=== PATIENT | female | born 1940 | race Caucasian/White ===

== ENCOUNTER 2023-04-19 15:03 | Inpatient (IN) | payer MEDICARE, BC ==
[2023-04-19] MEDS ORDERED: Acetaminophen/HYDROcodone 325-10 MG Tab PO ONE (15:29)
[2023-04-19] MEDS ORDERED: Acetaminophen 325 MG Tab PO PRN (18:09)
[2023-04-19] MEDS ORDERED: Polyethylene Glycol 3350 Powder 17 GM Packet PO PRN (18:10)
[2023-04-19] MEDS ORDERED: Non-Formulary Medication 1 Each (Triamcinolone Acetonide 80 GM Tube) TOP SCH (18:15)
[2023-04-19] MEDS: Amitriptyline 25 MG Tab PO SCH (21:58)
[2023-04-19] MEDS: Acetaminophen 650 MG Tab.ER PO PRN (21:58)
[2023-04-19] MEDS: atorvaSTATin 40 MG Tab PO SCH (21:58)
[2023-04-20] MEDS: Acetaminophen/HYDROcodone 325-5 MG Tab PO PRN ×5 (01:29→23:58)
[2023-04-20] MEDS: Levothyroxine 112 MCG Tab PO SCH (06:48)
[2023-04-20 08:12] LABS: BASOPHILS ABSOLUTE AUTO 0.1 x10^3/uL (0.0-0.2); BASOPHILS PERCENT AUTO 1.2 % (0.2-1.2); EOSINOPHILS ABSOLUTE AUTO 0.3 x10^3/uL (0.0-0.5); EOSINOPHILS PERCENT AUTO 5.4 % (0.0-4.0); HEMATOCRIT 35.8 % (33.0-47.0); HEMOGLOBIN 11.4 g/dL (12.0-16.0); IMMATURE GRAN ABSOLUTE AUTO 0.01 x10^3/uL (0.00-0.07); LYMPHOCYTES ABSOLUTE AUTO 1.8 x10^3/uL (1.0-4.8); LYMPHOCYTES PERCENT AUTO 35.2 % (25.0-50.0); MEAN CORPUSCULAR HEMOGLOBIN 27.9 pg (26.0-32.0); MEAN CORPUSCULAR HGB CONC 31.8 g/dL (32.0-36.0); MEAN CORPUSCULAR VOLUME 87.7 fL (78.0-93.0); MONOCYTES ABSOLUTE AUTO 0.4 x10^3/uL (0.0-0.8); MONOCYTES PERCENT AUTO 7.9 % (2.0-11.0); NEUTROPHILS ABSOLUTE AUTO 2.6 x10^3/uL (1.8-7.7); NEUTROPHILS PERCENT AUTO 50.1 % (50.0-80.0); PLATELET COUNT,PLT 163 x10^3/uL (130-400); RED BLOOD CELL COUNT 4.08 x10^6/uL (4.00-5.50); WHITE BLOOD CELL COUNT,WBC 5.2 x10^3/uL (4.0-10.0)
[2023-04-20 08:28] LABS: A/G RATIO 0.97; BILIRUBIN TOTAL 0.5 mg/dL (0.2-1.0); CALCIUM 8.5 mg/dL (8.5-10.1); CREATININE 0.8 mg/dL (0.55-1.02); EST CRCL DRUG DOSING (CG) 40.21 mL/min; MAGNESIUM 1.7 mg/dL (1.8-2.4); POTASSIUM,K 3.5 mmol/L (3.5-5.1); PROTEIN TOTAL,TP 6.1 g/dL (6.4-8.2)
[2023-04-20 08:31] LABS: ANION GAP 8.5 mmol/L (5-15)
[2023-04-20] MEDS: Metoprolol Tartrate 50 MG Tab PO SCH (08:31)
[2023-04-20] MEDS: Multivitamin Tab PO SCH (08:32)
[2023-04-20] MEDS: Docusate Sodium 100 MG Cap PO SCH (08:34)
[2023-04-20] MEDS ORDERED: Magnesium Oxide 400 MG Tab PO ONE (10:22)
[2023-04-20] MEDS: atorvaSTATin 40 MG Tab PO SCH (21:19)
[2023-04-20] MEDS: Amitriptyline 25 MG Tab PO SCH (21:19)
[2023-04-20] MEDS: Acetaminophen 650 MG Tab.ER PO PRN (21:20)
[2023-04-21] MEDS: Levothyroxine 112 MCG Tab PO SCH (06:20)
[2023-04-21] MEDS: Acetaminophen/HYDROcodone 325-5 MG Tab PO PRN ×2 (07:52→21:32)
[2023-04-21] MEDS: Multivitamin Tab PO SCH ×2 (07:53→09:00)
[2023-04-21] MEDS: Docusate Sodium 100 MG Cap PO SCH ×2 (07:53→09:00)
[2023-04-21] MEDS: Metoprolol Tartrate 50 MG Tab PO SCH ×2 (07:53→09:00)
[2023-04-21] MEDS: Albuterol/Ipratropium 3.0-0.5 MG/3 ML Neb Soln NEB PRN (09:15)
[2023-04-21] MEDS: HYDROmorphone 0.5 MG/0.5 ML Syringe IVPUSH PRN (12:32)
[2023-04-21] MEDS: Amitriptyline 25 MG Tab PO SCH (21:29)
[2023-04-21] MEDS: atorvaSTATin 40 MG Tab PO SCH (21:29)
[2023-04-22] MEDS: Levothyroxine 112 MCG Tab PO SCH (06:37)
[2023-04-22] MEDS: Acetaminophen/HYDROcodone 325-5 MG Tab PO PRN ×2 (06:47→20:59)
[2023-04-22] MEDS: Albuterol/Ipratropium 3.0-0.5 MG/3 ML Neb Soln NEB PRN ×2 (09:03→20:59)
[2023-04-22] MEDS: HYDROmorphone 0.5 MG/0.5 ML Syringe IVPUSH PRN (09:10)
[2023-04-22] MEDS: Docusate Sodium 100 MG Cap PO SCH (09:11)
[2023-04-22] MEDS: Multivitamin Tab PO SCH (09:11)
[2023-04-22] MEDS: Metoprolol Tartrate 50 MG Tab PO SCH (09:11)
[2023-04-22] MEDS: Amitriptyline 25 MG Tab PO SCH (20:59)
[2023-04-22] MEDS: atorvaSTATin 40 MG Tab PO SCH (20:59)
[2023-04-23] MEDS: Metoprolol Tartrate 50 MG Tab PO SCH ×2 (06:36→08:23)
[2023-04-23] MEDS: Docusate Sodium 100 MG Cap PO SCH ×2 (06:36→08:22)
[2023-04-23] MEDS: Multivitamin Tab PO SCH ×2 (06:36→08:23)
[2023-04-23] MEDS: Levothyroxine 112 MCG Tab PO SCH (06:37)
[2023-04-23] MEDS: Acetaminophen/HYDROcodone 325-5 MG Tab PO PRN (11:44)
[2023-04-24] MEDS ORDERED: predniSONE 20 MG Tab PO SCH (09:00)
== END 2023-04-23 16:00 | disposition swing bed (61) | DRG 552 ==
LOC: VM.ED 15:03 → VM.MS 17:50 → OBSVTOIN 04-20 10:42
PROVIDERS: ADMIT Nurse Practitioner Family; ATTEND Family Medicine
DX: S32.020A Wedge compression fracture of second lumbar vertebra, initial encounter for closed fracture (principal); J45.21 Mild intermittent asthma with (acute) exacerbation; J45.909 Unspecified asthma, uncomplicated; I25.10 Atherosclerotic heart disease of native coronary artery without angina pectoris; M19.90 Unspecified osteoarthritis, unspecified site; M17.10 Unilateral primary osteoarthritis, unspecified knee; E03.9 Hypothyroidism, unspecified; F32.A Depression, unspecified; M06.9 Rheumatoid arthritis, unspecified; I10 Essential (primary) hypertension; E78.2 Mixed hyperlipidemia; E66.9 Obesity, unspecified; F41.9 Anxiety disorder, unspecified; M43.16 Spondylolisthesis, lumbar region; E78.00 Pure hypercholesterolemia, unspecified; Z88.2 Allergy status to sulfonamides; Z88.8 Allergy status to other drugs, medicaments and biological substances; Z88.5 Allergy status to narcotic agent; Z91.013 Allergy to seafood; Z91.040 Latex allergy status; Z91.018 Allergy to other foods; Z79.899 Other long term (current) drug therapy; Z95.0 Presence of cardiac pacemaker; I25.2 Old myocardial infarction; Z86.73 Personal history of transient ischemic attack (TIA), and cerebral infarction without residual deficits; Z87.440 Personal history of urinary (tract) infections; Z98.49 Cataract extraction status, unspecified eye; Z90.49 Acquired absence of other specified parts of digestive tract; Z98.890 Other specified postprocedural states; Z90.710 Acquired absence of both cervix and uterus; Z68.34 Body mass index [BMI] 34.0-34.9, adult; Z87.891 Personal history of nicotine dependence; W10.9XXA Fall (on) (from) unspecified stairs and steps, initial encounter
CPT/HCPCS: 36415; 72131; 72192; 80053; 82550; 83735; 85025; 94640; 97116-GP; 97162-GP; 97165-GO; 97530-GP; 97535-GO; 99285; A9270-GY; G0378; J1170; J7620-GY

== ENCOUNTER 2023-04-23 13:10 | Inpatient (IN) | payer MEDICARE, BC ==
[2023-04-23] MEDS ORDERED: Albuterol/Ipratropium 3.0-0.5 MG/3 ML Neb Soln NEB PRN (15:49)
[2023-04-23] MEDS ORDERED: Polyethylene Glycol 3350 Powder 17 GM Packet PO PRN (15:49)
[2023-04-23] MEDS: atorvaSTATin 40 MG Tab PO SCH (20:43)
[2023-04-23] MEDS: Amitriptyline 25 MG Tab PO SCH (20:43)
[2023-04-23] MEDS: Acetaminophen 650 MG Tab.ER PO PRN (20:43)
[2023-04-24] MEDS: Levothyroxine 112 MCG Tab PO SCH (07:33)
[2023-04-24] MEDS: Metoprolol Tartrate 50 MG Tab PO SCH (08:22)
[2023-04-24] MEDS: Docusate Sodium 100 MG Cap PO SCH (08:23)
[2023-04-24] MEDS: Multivitamin Tab PO SCH (08:23)
[2023-04-24] MEDS: predniSONE 20 MG Tab PO SCH (08:23)
[2023-04-24] MEDS: Acetaminophen 650 MG Tab.ER PO PRN (08:26)
[2023-04-24] MEDS: Amitriptyline 25 MG Tab PO SCH (20:29)
[2023-04-24] MEDS: Acetaminophen/HYDROcodone 325-5 MG Tab PO PRN (20:29)
[2023-04-24] MEDS: atorvaSTATin 40 MG Tab PO SCH (20:30)
[2023-04-25] MEDS: Acetaminophen/HYDROcodone 325-5 MG Tab PO PRN ×2 (00:01→20:59)
[2023-04-25] MEDS: Levothyroxine 112 MCG Tab PO SCH (07:32)
[2023-04-25] MEDS: Docusate Sodium 100 MG Cap PO SCH (08:39)
[2023-04-25] MEDS: Multivitamin Tab PO SCH (08:40)
[2023-04-25] MEDS: predniSONE 20 MG Tab PO SCH (08:40)
[2023-04-25] MEDS: Metoprolol Tartrate 50 MG Tab PO SCH (08:41)
[2023-04-25] MEDS: Acetaminophen 650 MG Tab.ER PO PRN (16:40)
[2023-04-25] MEDS: Amitriptyline 25 MG Tab PO SCH (20:59)
[2023-04-25] MEDS: atorvaSTATin 40 MG Tab PO SCH (20:59)
[2023-04-26] MEDS: Levothyroxine 112 MCG Tab PO SCH (06:34)
[2023-04-26] MEDS: Docusate Sodium 100 MG Cap PO SCH (09:07)
[2023-04-26] MEDS: Acetaminophen 650 MG Tab.ER PO PRN ×2 (09:07→20:54)
[2023-04-26] MEDS: predniSONE 20 MG Tab PO SCH (09:07)
[2023-04-26] MEDS: Multivitamin Tab PO SCH (09:07)
[2023-04-26] MEDS: Metoprolol Tartrate 50 MG Tab PO SCH (09:09)
[2023-04-26] MEDS: atorvaSTATin 40 MG Tab PO SCH (20:51)
[2023-04-26] MEDS: Amitriptyline 25 MG Tab PO SCH (20:51)
[2023-04-27] MEDS: Levothyroxine 112 MCG Tab PO SCH (06:31)
[2023-04-27] MEDS: Metoprolol Tartrate 50 MG Tab PO SCH (10:01)
[2023-04-27] MEDS: Acetaminophen 650 MG Tab.ER PO PRN (10:01)
[2023-04-27] MEDS: Docusate Sodium 100 MG Cap PO SCH (10:02)
[2023-04-27] MEDS: Multivitamin Tab PO SCH (10:02)
[2023-04-27] MEDS: predniSONE 20 MG Tab PO SCH (10:02)
[2023-04-27] MEDS: Amitriptyline 25 MG Tab PO SCH (20:12)
[2023-04-27] MEDS: Acetaminophen/HYDROcodone 325-5 MG Tab PO PRN (20:13)
[2023-04-27] MEDS: atorvaSTATin 40 MG Tab PO SCH (20:14)
[2023-04-28] MEDS: Levothyroxine 112 MCG Tab PO SCH (06:10)
[2023-04-28] MEDS: Acetaminophen 650 MG Tab.ER PO PRN (06:14)
[2023-04-28] MEDS: Multivitamin Tab PO SCH (09:41)
[2023-04-28] MEDS: Metoprolol Tartrate 50 MG Tab PO SCH (09:42)
[2023-04-28] MEDS: Docusate Sodium 100 MG Cap PO SCH (09:42)
[2023-04-28] MEDS: predniSONE 20 MG Tab PO SCH (09:43)
[2023-04-28] MEDS: Acetaminophen/HYDROcodone 325-5 MG Tab PO PRN ×2 (16:24→20:29)
[2023-04-28] MEDS: atorvaSTATin 40 MG Tab PO SCH (20:28)
[2023-04-28] MEDS: Amitriptyline 25 MG Tab PO SCH (20:29)
[2023-04-29] MEDS: Levothyroxine 112 MCG Tab PO SCH (06:52)
[2023-04-29] MEDS: Acetaminophen 650 MG Tab.ER PO PRN (06:53)
[2023-04-29] MEDS: Docusate Sodium 100 MG Cap PO SCH (10:05)
[2023-04-29] MEDS: Metoprolol Tartrate 50 MG Tab PO SCH (10:06)
[2023-04-29] MEDS: Multivitamin Tab PO SCH (10:09)
[2023-04-29] MEDS: Acetaminophen/HYDROcodone 325-5 MG Tab PO PRN (20:41)
[2023-04-29] MEDS: atorvaSTATin 40 MG Tab PO SCH (20:41)
[2023-04-29] MEDS: Amitriptyline 25 MG Tab PO SCH (20:41)
[2023-04-30] MEDS: Levothyroxine 112 MCG Tab PO SCH (07:22)
[2023-04-30] MEDS: Acetaminophen/HYDROcodone 325-5 MG Tab PO PRN ×2 (07:23→20:33)
[2023-04-30] MEDS: Docusate Sodium 100 MG Cap PO SCH (08:09)
[2023-04-30] MEDS: Multivitamin Tab PO SCH (08:09)
[2023-04-30] MEDS: Metoprolol Tartrate 50 MG Tab PO SCH (08:09)
[2023-04-30] MEDS: Acetaminophen 650 MG Tab.ER PO PRN (14:48)
[2023-04-30] MEDS: Amitriptyline 25 MG Tab PO SCH (20:32)
[2023-04-30] MEDS: atorvaSTATin 40 MG Tab PO SCH (20:33)
[2023-05-01] MEDS: Levothyroxine 112 MCG Tab PO SCH (06:00)
[2023-05-01] MEDS: Acetaminophen 650 MG Tab.ER PO PRN ×2 (06:00→20:36)
[2023-05-01] MEDS: Metoprolol Tartrate 50 MG Tab PO SCH (09:37)
[2023-05-01] MEDS: Multivitamin Tab PO SCH (09:37)
[2023-05-01] MEDS: Docusate Sodium 100 MG Cap PO SCH (09:38)
[2023-05-01] MEDS: Amitriptyline 25 MG Tab PO SCH (20:35)
[2023-05-01] MEDS: Acetaminophen/HYDROcodone 325-5 MG Tab PO PRN (20:36)
[2023-05-01] MEDS: atorvaSTATin 40 MG Tab PO SCH (20:36)
[2023-05-02] MEDS: Levothyroxine 112 MCG Tab PO SCH (06:53)
[2023-05-02] MEDS: Acetaminophen 650 MG Tab.ER PO PRN ×2 (08:52→21:40)
[2023-05-02] MEDS: Docusate Sodium 100 MG Cap PO SCH (08:53)
[2023-05-02] MEDS: Multivitamin Tab PO SCH (08:54)
[2023-05-02] MEDS: Metoprolol Tartrate 50 MG Tab PO SCH (08:54)
[2023-05-02] MEDS: Amitriptyline 25 MG Tab PO SCH (21:39)
[2023-05-02] MEDS: atorvaSTATin 40 MG Tab PO SCH (21:40)
[2023-05-02] MEDS: Acetaminophen/HYDROcodone 325-5 MG Tab PO PRN (21:40)
[2023-05-03] MEDS: Acetaminophen 650 MG Tab.ER PO PRN ×2 (05:50→20:22)
[2023-05-03] MEDS: Levothyroxine 112 MCG Tab PO SCH ×2 (05:50→07:22)
[2023-05-03] MEDS: Metoprolol Tartrate 50 MG Tab PO SCH ×2 (05:51→08:39)
[2023-05-03] MEDS: Multivitamin Tab PO SCH ×2 (05:51→08:39)
[2023-05-03] MEDS: Docusate Sodium 100 MG Cap PO SCH ×2 (05:51→08:39)
[2023-05-03] MEDS: Amitriptyline 25 MG Tab PO SCH (20:22)
[2023-05-03] MEDS: Acetaminophen/HYDROcodone 325-5 MG Tab PO PRN (20:22)
[2023-05-03] MEDS: atorvaSTATin 40 MG Tab PO SCH (20:22)
[2023-05-04] MEDS: Levothyroxine 112 MCG Tab PO SCH (06:21)
[2023-05-04] MEDS: Acetaminophen 650 MG Tab.ER PO PRN ×2 (06:22→21:30)
[2023-05-04] MEDS: Docusate Sodium 100 MG Cap PO SCH (08:14)
[2023-05-04] MEDS: Metoprolol Tartrate 50 MG Tab PO SCH (08:14)
[2023-05-04] MEDS: Multivitamin Tab PO SCH (08:15)
[2023-05-04] MEDS: Amitriptyline 25 MG Tab PO SCH (21:29)
[2023-05-04] MEDS: Acetaminophen/HYDROcodone 325-5 MG Tab PO PRN (21:30)
[2023-05-04] MEDS: atorvaSTATin 40 MG Tab PO SCH (21:30)
[2023-05-05] MEDS: Levothyroxine 112 MCG Tab PO SCH (07:22)
[2023-05-05] MEDS: Acetaminophen 650 MG Tab.ER PO PRN ×2 (09:16→23:06)
[2023-05-05] MEDS: Multivitamin Tab PO SCH (09:20)
[2023-05-05] MEDS: Docusate Sodium 100 MG Cap PO SCH (09:20)
[2023-05-05] MEDS: Metoprolol Tartrate 50 MG Tab PO SCH (09:21)
[2023-05-05] MEDS: Amitriptyline 25 MG Tab PO SCH (22:00)
[2023-05-05] MEDS: atorvaSTATin 40 MG Tab PO SCH (22:00)
[2023-05-06] MEDS: Levothyroxine 112 MCG Tab PO SCH (06:16)
[2023-05-06] MEDS: Metoprolol Tartrate 50 MG Tab PO SCH (08:41)
[2023-05-06] MEDS: Multivitamin Tab PO SCH (08:42)
[2023-05-06] MEDS: Docusate Sodium 100 MG Cap PO SCH (08:42)
[2023-05-06] MEDS: atorvaSTATin 40 MG Tab PO SCH (20:55)
[2023-05-06] MEDS: Acetaminophen 650 MG Tab.ER PO PRN (20:55)
[2023-05-06] MEDS: Amitriptyline 25 MG Tab PO SCH (20:55)
[2023-05-07] MEDS: Levothyroxine 112 MCG Tab PO SCH (06:21)
[2023-05-07] MEDS: Acetaminophen 650 MG Tab.ER PO PRN (06:26)
[2023-05-07] MEDS: Metoprolol Tartrate 50 MG Tab PO SCH (08:46)
[2023-05-07] MEDS: Multivitamin Tab PO SCH (08:46)
[2023-05-07] MEDS: Docusate Sodium 100 MG Cap PO SCH (08:48)
== END 2023-05-07 11:15 | disposition home health service (06) | DRG 561 ==
LOC: VM.MS 16:00
PROVIDERS: ADMIT Internal Medicine; ATTEND Family Medicine
DX: S32.029D Unspecified fracture of second lumbar vertebra, subsequent encounter for fracture with routine healing (principal); I10 Essential (primary) hypertension; E03.9 Hypothyroidism, unspecified; E66.9 Obesity, unspecified; I49.5 Sick sinus syndrome; F32.A Depression, unspecified; F41.9 Anxiety disorder, unspecified; M06.9 Rheumatoid arthritis, unspecified; E78.00 Pure hypercholesterolemia, unspecified; I25.10 Atherosclerotic heart disease of native coronary artery without angina pectoris; Z86.73 Personal history of transient ischemic attack (TIA), and cerebral infarction without residual deficits; Z79.899 Other long term (current) drug therapy; Z79.890 Hormone replacement therapy; I25.2 Old myocardial infarction; Z95.0 Presence of cardiac pacemaker; Z98.49 Cataract extraction status, unspecified eye; Z90.49 Acquired absence of other specified parts of digestive tract; Z90.710 Acquired absence of both cervix and uterus; Z98.890 Other specified postprocedural states; Z87.891 Personal history of nicotine dependence
CPT/HCPCS: 95851-GO; 97110-GP; 97116-GP; 97530-GO; 97530-GP; 97535-GO; A9270-GY; J7512; J7620-GY

== ENCOUNTER 2023-07-22 12:04 | Emergency (ER) | payer MEDICARE, BC ==
[2023-07-22 12:40] LABS: BASOPHILS PERCENT AUTO 0.9 % (0.2-1.2); EOSINOPHILS ABSOLUTE AUTO 0.2 x10^3/uL (0.0-0.5); EOSINOPHILS PERCENT AUTO 3.4 % (0.0-4.0); HEMATOCRIT 39.6 % (33.0-47.0); HEMOGLOBIN 12.4 g/dL (12.0-16.0); IMMATURE GRAN ABSOLUTE AUTO 0.01 x10^3/uL (0.00-0.07); LYMPHOCYTES ABSOLUTE AUTO 1.6 x10^3/uL (1.0-4.8); LYMPHOCYTES PERCENT AUTO 36.7 % (25.0-50.0); MEAN CORPUSCULAR HEMOGLOBIN 27.2 pg (26.0-32.0); MEAN CORPUSCULAR HGB CONC 31.3 g/dL (32.0-36.0); MEAN CORPUSCULAR VOLUME 86.8 fL (78.0-93.0); MONOCYTES ABSOLUTE AUTO 0.4 x10^3/uL (0.0-0.8); MONOCYTES PERCENT AUTO 8.7 % (2.0-11.0); NEUTROPHILS ABSOLUTE AUTO 2.2 x10^3/uL (1.8-7.7); NEUTROPHILS PERCENT AUTO 50.1 % (50.0-80.0); PLATELET COUNT,PLT 181 x10^3/uL (130-400); RED BLOOD CELL COUNT 4.56 x10^6/uL (4.00-5.50); WHITE BLOOD CELL COUNT,WBC 4.4 x10^3/uL (4.0-10.0)
[2023-07-22 13:01] LABS: A/G RATIO 0.92; ALANINE AMINOTRANSFERASE,ALT 18 U/L (14-59); ALBUMIN 3.4 g/dL (3.4-5.0); ALKALINE PHOSPHATASE 84 U/L (46-116); ASPARTATE AMNIOTRANSFERASE,AST 15 U/L (15-37); BILIRUBIN TOTAL 0.6 mg/dL (0.2-1.0); BLOOD UREA NITROGEN,BUN 17 mg/dL (7-18); CALCIUM 8.9 mg/dL (8.5-10.1); CARBON DIOXIDE,CO2 30 mmol/L (21-32); CHLORIDE,CL 106 mmol/L (98-107); CREATININE 0.9 mg/dL (0.55-1.02); GLUCOSE RANDOM 95 mg/dL (70-99); POTASSIUM,K 4.4 mmol/L (3.5-5.1); PROTEIN TOTAL,TP 7.1 g/dL (6.4-8.2); SODIUM,NA 144 mmol/L (136-145)
[2023-07-22 13:05] LABS: ANION GAP 12.4 mmol/L (5-15); C-REACTIVE PROTEIN < 0.50 mg/dL (<=0.50); ESTIMATED GFR 63 mL/min (>=60)
[2023-07-22 13:22] LABS: CORONAVIRUS COVID-19 NAA NEGATIVE (NEGATIVE); INFLUENZA A NAA NEGATIVE (NEGATIVE); INFLUENZA B NAA NEGATIVE (NEGATIVE); RESPIRATORY SYNCYTIAL VIR NAA NEGATIVE (NEGATIVE)
[2023-07-22 13:30] LABS: BILIRUBIN,URINE NEGATIVE (NEGATIVE); COLOR,URINE DARK YELLOW (YELLOW); GLUCOSE,URINE NEGATIVE (NEGATIVE); KETONES,URINE NEGATIVE (NEGATIVE); LEUKOCYTE ESTERASE,URINE MODERATE (NEGATIVE); NITRITE,URINE NEGATIVE (NEGATIVE); OCCULT BLOOD,URINE NEGATIVE (NEGATIVE); PROTEIN,URINE NEGATIVE (NEGATIVE); UROBILINOGEN,URINE 0.2 EU/dL (0.2)
[2023-07-22 13:43] LABS: APPEARANCE,URINE SLIGHTLY CLOUDY (CLEAR)
[2023-07-22 13:51] LABS: BACTERIA,URINE OCCASIONAL /HPF (NOT SEEN); MUCUS,URINE FEW /LPF (NOT SEEN); RBC,URINE 0-5 /HPF (NOT SEEN); SQUAMOUS EPITHELIAL CELLS,UR RARE /HPF (NOT SEEN)
== END 2023-07-22 14:15 | disposition home or self-care (01) ==
LOC: VM.ED 12:04
DX: N39.0 Urinary tract infection, site not specified (principal); J45.909 Unspecified asthma, uncomplicated; I25.10 Atherosclerotic heart disease of native coronary artery without angina pectoris; I25.2 Old myocardial infarction; E03.9 Hypothyroidism, unspecified; Z95.0 Presence of cardiac pacemaker; Z86.73 Personal history of transient ischemic attack (TIA), and cerebral infarction without residual deficits; Z79.899 Other long term (current) drug therapy; Z91.013 Allergy to seafood; Z91.048 Other nonmedicinal substance allergy status; Z91.018 Allergy to other foods; Z91.040 Latex allergy status; Z88.0 Allergy status to penicillin; Z88.2 Allergy status to sulfonamides; Z88.1 Allergy status to other antibiotic agents; Z88.8 Allergy status to other drugs, medicaments and biological substances; Z20.822 Contact with and (suspected) exposure to COVID-19
CPT/HCPCS: 0241U; 36415; 70450; 71046; 80053; 81001; 85025; 86140; 87086; 99285; 87088; 87186; 99284

== ENCOUNTER 2024-03-29 16:23 | Emergency (ER) | payer MEDICARE, BC ==
[2024-03-29] MEDS: Albuterol/Ipratropium 3.0-0.5 MG/3 ML Neb Soln NEB ONE (17:37)
[2024-03-29 17:47] LABS: BASOPHILS PERCENT AUTO 0.1 % (0.2-1.2); EOSINOPHILS ABSOLUTE AUTO 0.1 x10^3/uL (0.0-0.5); EOSINOPHILS PERCENT AUTO 0.9 % (0.0-4.0); HEMATOCRIT 40.1 % (33.0-47.0); HEMOGLOBIN 13.5 g/dL (12.0-16.0); IMMATURE GRAN ABSOLUTE AUTO 0.24 x10^3/uL (0.00-0.07); LYMPHOCYTES ABSOLUTE AUTO 2.6 x10^3/uL (1.0-4.8); LYMPHOCYTES PERCENT AUTO 16.3 % (25.0-50.0); MEAN CORPUSCULAR HEMOGLOBIN 28.7 pg (26.0-32.0); MEAN CORPUSCULAR HGB CONC 33.7 g/dL (32.0-36.0); MEAN CORPUSCULAR VOLUME 85.1 fL (78.0-93.0); MONOCYTES ABSOLUTE AUTO 1.2 x10^3/uL (0.0-0.8); MONOCYTES PERCENT AUTO 7.7 % (2.0-11.0); NEUTROPHILS ABSOLUTE AUTO 11.9 x10^3/uL (1.8-7.7); NEUTROPHILS PERCENT AUTO 73.5 % (50.0-80.0); PLATELET COUNT,PLT 218 x10^3/uL (130-400); RED BLOOD CELL COUNT 4.71 x10^6/uL (4.00-5.50); WHITE BLOOD CELL COUNT,WBC 16.1 x10^3/uL (4.0-10.0)
[2024-03-29 18:11] LABS: A/G RATIO 1.13; ALANINE AMINOTRANSFERASE,ALT 19 U/L (14-59); ALBUMIN 3.6 g/dL (3.4-5.0); ALKALINE PHOSPHATASE 84 U/L (46-116); ASPARTATE AMNIOTRANSFERASE,AST 14 U/L (15-37); BILIRUBIN TOTAL 0.4 mg/dL (0.2-1.0); BLOOD UREA NITROGEN,BUN 30 mg/dL (7-18); CALCIUM 8.5 mg/dL (8.5-10.1); CARBON DIOXIDE,CO2 30 mmol/L (21-32); CHLORIDE,CL 105 mmol/L (98-107); CREATININE 0.9 mg/dL (0.55-1.02); GLUCOSE RANDOM 116 mg/dL (70-99); POTASSIUM,K 4.3 mmol/L (3.5-5.1); PRO B-TYPE NATRIUR PEPT,BNPPRO 1092 pg/mL (<=450); PROTEIN TOTAL,TP 6.8 g/dL (6.4-8.2); SODIUM,NA 143 mmol/L (136-145)
[2024-03-29 18:12] LABS: ANION GAP 12.3 mmol/L (5-15); ESTIMATED GFR 63 mL/min (>=60)
[2024-03-29 19:13] LABS: APPEARANCE,URINE CLEAR (CLEAR); BILIRUBIN,URINE NEGATIVE (NEGATIVE); COLOR,URINE YELLOW (YELLOW); GLUCOSE,URINE NEGATIVE (NEGATIVE); KETONES,URINE NEGATIVE (NEGATIVE); LEUKOCYTE ESTERASE,URINE TRACE (NEGATIVE); NITRITE,URINE NEGATIVE (NEGATIVE); OCCULT BLOOD,URINE NEGATIVE (NEGATIVE); PROTEIN,URINE NEGATIVE (NEGATIVE)
[2024-03-29 19:16] LABS: BACTERIA,URINE OCCASIONAL /HPF (NOT SEEN); MUCUS,URINE OCCASIONAL /LPF (NOT SEEN); RBC,URINE 0-5 /HPF (NOT SEEN); SQUAMOUS EPITHELIAL CELLS,UR FEW /HPF (NOT SEEN); WBC,URINE 0-5 /HPF (NOT SEEN)
[2024-03-29 19:38] LABS: CORONAVIRUS COVID-19 NAA NEGATIVE (NEGATIVE); INFLUENZA A NAA NEGATIVE (NEGATIVE); INFLUENZA B NAA NEGATIVE (NEGATIVE)
[2024-03-29] MEDS: Azithromycin 250 MG Tab PO ONE (20:48)
[2024-03-29] MEDS: Take Home: Amoxicillin/Clavulanate K 875-125 MG Tab, 2 Tab Pack PO ONE (20:48)
[2024-03-29] MEDS: Take Home: Albuterol 18 GM Inhaler, 1 Inhaler Pack INH PRN (20:54)
[2024-03-29] MEDS: cefTRIAXone 1 GM Vial IVPUSH ONE (20:55)
[2024-03-29] MEDS: Lidocaine 1% 10 ML MDV INJECT ONE (20:57)
[2024-03-29] MEDS: cefTRIAXone 1 GM Vial IM ONE (21:33)
== END 2024-03-29 21:06 | disposition home or self-care (01) ==
LOC: VM.ED 16:23
DX: J18.9 Pneumonia, unspecified organism (principal); I10 Essential (primary) hypertension; I25.2 Old myocardial infarction; E03.9 Hypothyroidism, unspecified; Z88.2 Allergy status to sulfonamides; Z88.8 Allergy status to other drugs, medicaments and biological substances; Z91.040 Latex allergy status; Z91.018 Allergy to other foods; Z88.5 Allergy status to narcotic agent; Z91.013 Allergy to seafood; Z79.890 Hormone replacement therapy; Z79.899 Other long term (current) drug therapy; Z90.49 Acquired absence of other specified parts of digestive tract; Z90.710 Acquired absence of both cervix and uterus
CPT/HCPCS: 0240U; 36415; 71046; 80053; 81001; 83880; 84484; 85025; 93005; 96372; 99285; A9270; J0696; 93010; 99284; J3490; J7620-GY

== ENCOUNTER 2024-12-30 10:52 | Emergency (ER) | payer MEDICARE, BC ==
[2024-12-30 11:38] LABS: BASOPHILS ABSOLUTE AUTO 0.1 x10^3/uL (0.0-0.2); BASOPHILS PERCENT AUTO 1.2 % (0.2-1.2); EOSINOPHILS ABSOLUTE AUTO 0.4 x10^3/uL (0.0-0.5); EOSINOPHILS PERCENT AUTO 5.2 % (0.0-4.0); HEMATOCRIT 38.2 % (33.0-47.0); HEMOGLOBIN 12.4 g/dL (12.0-16.0); IMMATURE GRAN ABSOLUTE AUTO 0.02 x10^3/uL (0.00-0.07); LYMPHOCYTES PERCENT AUTO 29.1 % (25.0-50.0); MEAN CORPUSCULAR HEMOGLOBIN 27.9 pg (26.0-32.0); MEAN CORPUSCULAR HGB CONC 32.5 g/dL (32.0-36.0); MEAN CORPUSCULAR VOLUME 85.8 fL (78.0-93.0); MONOCYTES ABSOLUTE AUTO 0.5 x10^3/uL (0.0-0.8); MONOCYTES PERCENT AUTO 6.5 % (2.0-11.0); NEUTROPHILS PERCENT AUTO 57.7 % (50.0-80.0); PLATELET COUNT,PLT 215 x10^3/uL (130-400); RED BLOOD CELL COUNT 4.45 x10^6/uL (4.00-5.50); WHITE BLOOD CELL COUNT,WBC 6.9 x10^3/uL (4.0-10.0)
[2024-12-30] MEDS: Albuterol/Ipratropium 3.0-0.5 MG/3 ML Neb Soln NEB ONE (11:44)
[2024-12-30] MEDS ORDERED: Dexamethasone 10 MG/ML SDV PO ONE ×2 (11:55→12:05)
[2024-12-30 12:01] LABS: A/G RATIO 0.94; ALANINE AMINOTRANSFERASE,ALT 16 U/L (14-59); ALBUMIN 3.3 g/dL (3.4-5.0); ALKALINE PHOSPHATASE 91 U/L (46-116); ASPARTATE AMNIOTRANSFERASE,AST 20 U/L (15-37); BILIRUBIN TOTAL 0.4 mg/dL (0.2-1.0); BLOOD UREA NITROGEN,BUN 16 mg/dL (7-18); CALCIUM 8.7 mg/dL (8.5-10.1); CARBON DIOXIDE,CO2 26 mmol/L (21-32); CHLORIDE,CL 106 mmol/L (98-107); CREATININE 0.8 mg/dL (0.55-1.02); GLUCOSE RANDOM 110 mg/dL (70-99); POTASSIUM,K 4.2 mmol/L (3.5-5.1); PRO B-TYPE NATRIUR PEPT,BNPPRO 398 pg/mL (<=450); PROTEIN TOTAL,TP 6.8 g/dL (6.4-8.2); SODIUM,NA 142 mmol/L (136-145)
[2024-12-30 12:03] LABS: ANION GAP 14.2 mmol/L (5-15); C-REACTIVE PROTEIN < 0.50 mg/dL (<=0.50); ESTIMATED GFR 73 mL/min (>=60)
[2024-12-30] MEDS: Dexamethasone 4 MG/ML SDV PO ONE (12:08)
== END 2024-12-30 12:19 | disposition home or self-care (01) ==
LOC: SUPCPDRO 10:52 → VM.ED 10:52
DX: J40 Bronchitis, not specified as acute or chronic (principal); F41.9 Anxiety disorder, unspecified; E03.9 Hypothyroidism, unspecified; Z90.49 Acquired absence of other specified parts of digestive tract; Z90.710 Acquired absence of both cervix and uterus; Z79.899 Other long term (current) drug therapy; Z79.890 Hormone replacement therapy; Z91.018 Allergy to other foods; Z91.013 Allergy to seafood; Z91.048 Other nonmedicinal substance allergy status; Z88.2 Allergy status to sulfonamides; Z88.8 Allergy status to other drugs, medicaments and biological substances; Z88.5 Allergy status to narcotic agent; Z91.040 Latex allergy status
CPT/HCPCS: 36415; 71046; 80053; 83880; 85025; 86140; 94640; 99285; A9270; J1100; 99284